=== PATIENT | male | born 1980 | race African-American/Black ===

== ENCOUNTER 2021-10-18 09:09 | Emergency (ER) | payer SELFPAY ==
[~2021-10-18] VITALS: Ht 177.8 cm; Wt 65.0 kg
[2021-10-18 09:15] VITALS: BP 110/74
[2021-10-18 09:30] VITALS: BP 109/71
[2021-10-18 09:45] VITALS: BP 103/75
[2021-10-18 10:00] VITALS: BP 118/77
[2021-10-18 10:09] LABS: HEMATOCRIT 40.2 % (39.0-50.0); HEMOGLOBIN 13.4 g/dl (14.0-18.0); IMMATURE GRANULOCYTES 0.6 % (0.0-5.0); MEAN CELL VOLUME 90.1 fL CALC (80.0-100.0); MEAN CORPUSCULAR HGB CONC 33.3 g/dL CAL (32.0-36.0); NEUT# 7.22 thou/uL (1.82-7.42); RED BLOOD COUNT 4.46 mill/uL (4.70-6.10); RED CELL DISTRI WIDTH 13.9 % (11.5-15.5)
[2021-10-18 10:24] LABS: ALKALINE PHOSPHATASE 67 u/l (38-126); ANION GAP 11 (6-22 (CALC)); BILIRUBIN, TOTAL 1.3 mg/dL (0.0-1.4); BUN 24 mg/dL (9-20); BUN/CREATININE RATIO 24 (12-20 (CALC)); CARBON DIOXIDE 28 mmol/l (22-30); CHLORIDE 106 mmol/l (95-108); ETHYL ALCOHOL 0 mg/dl (0-30); GFR FOR AFR.AMER. > 60 ML/MIN (>=60 (CALC)); GFR OTHER RACES > 60 ML/MIN (>=60 (CALC)); POTASSIUM 4.5 mmol/l (3.5-5.1); SGOT/AST 28 u/l (17-59); SODIUM 140 mmol/l (137-146); TOTAL PROTEIN 7.3 g/dL (6.3-8.2)
[2021-10-18 13:09] VITALS: BP 118/77
== END 2021-10-18 13:20 | disposition home or self-care (01) | DRG 948 ==
LOC: ED 09:09
PROVIDERS: Family Medicine
DX: R53.83 Other fatigue (principal); F31.9 Bipolar disorder, unspecified; F20.9 Schizophrenia, unspecified; F17.210 Nicotine dependence, cigarettes, uncomplicated